=== PATIENT | female | born 1985 | race Caucasian/White ===

== ENCOUNTER 2018-10-02 14:53 | Inpatient (IN) | payer OTHER ==
[~2018-10-02] VITALS: Ht 162.6 cm; Wt 72.2 kg
[~2018-10-02 14:53] MED LIST: ALBU18HF ORAL; BACL10TA ORAL; DOCU-144 PO; HYDR-3601 ORAL; HYDR-4011 PO; LORA-441 PO; NITR0.4T32 ORAL; ONDA8TAB14 ORAL; PANT40TA3 PO
[2018-10-02] MEDS ORDERED: KETOROLAC 15 MG INJ IV STA (15:11)
[2018-10-02] MEDS ORDERED: morphine 4 MG/ML VIAL IV STA (15:11)
[2018-10-02] MEDS ORDERED: ONDANSETRON 4 MG INJ IV STA (15:11)
[2018-10-02] MEDS ORDERED: SOD CHLORIDE 0.9% 1,000 ML IV STA (15:11)
[2018-10-02] MEDS ORDERED: SOD CHLORIDE 0.9% 100 ML ONE (17:36)
[2018-10-02] MEDS ORDERED: IOHEXOL 300MG/ML 150 ML BTL ONE (17:36)
[2018-10-02] MEDS ORDERED: ACETAMINOPHEN 325 MG TAB PO PRN ×2 (20:30→21:00)
[2018-10-02] MEDS ORDERED: ONDANSETRON 4 MG INJ IV PRN (20:30)
[2018-10-02] MEDS ORDERED: HYDROCODONE/APAP (5/325) TAB PO PRN (21:00)
[2018-10-02] MEDS ORDERED: NACL 0.9% 3 ML SYG IV SCH (21:00)
[2018-10-02 22:43] VITALS: BP 123/82; PULSE 67; RESP 18
[2018-10-02 23:17] VITALS: Ht 162.6 cm; Wt 72.2 kg
[2018-10-02] MEDS: FAMOTIDINE 20 MG INJ IV SCH (23:54)
[2018-10-02] MEDS: ONDANSETRON 4 MG INJ IV PRN (23:58)
[2018-10-03] MEDS: HYDROCODONE/APAP (5/325) TAB PO PRN ×3 (03:39→13:10)
[2018-10-03] MEDS: ONDANSETRON 4 MG INJ IV PRN ×3 (06:18→20:04)
[2018-10-03 07:18] VITALS: BP 124/69; PULSE 66; RESP 18
[2018-10-03] MEDS: FAMOTIDINE 20 MG INJ IV SCH (09:06)
[2018-10-03 14:14] VITALS: BP 123/82; PULSE 71; RESP 18
[2018-10-03] MEDS ORDERED: METOCLOPRAMIDE 10 MG INJ IV PRN (15:30)
[2018-10-03] MEDS: morphine 2 MG INJ IV PRN ×2 (15:50→20:05)
[2018-10-03] MEDS: DOCUSATE SODIUM 250 MG CAP PO SCH (15:52)
[2018-10-03] MEDS: SUCRALFATE (100 MG/ML) 10ML CUP PO SCH ×2 (18:10→21:00)
[2018-10-03] MEDS: PANTOPRAZOLE 40 MG INJ IV SCH (18:10)
[2018-10-03 19:15] VITALS: BP 133/61; PULSE 71; RESP 18
[2018-10-03 20:14] VITALS: BP 120/70; PULSE 74; RESP 20
[2018-10-03] MEDS: METOCLOPRAMIDE 10 MG INJ IV SCH (21:15)
[2018-10-03] MEDS: HYDROmorphONE 1 MG/ML SYG IV PRN (21:30)
[2018-10-03] MEDS ORDERED: LORAZEPAM 2 MG INJ IV ONE (22:30)
[2018-10-03] MEDS ORDERED: ONDANSETRON 4 MG INJ IV ONE (23:43)
[2018-10-04 00:08] VITALS: BP 122/76; PULSE 82; RESP 18
[2018-10-04] MEDS: METOCLOPRAMIDE 10 MG INJ IV SCH ×5 (03:30→20:51)
[2018-10-04 04:30] VITALS: BP 106/56; PULSE 75; RESP 20
[2018-10-04] MEDS: HYDROmorphONE 1 MG/ML SYG IV PRN ×3 (04:55→13:28)
[2018-10-04] MEDS: DEXTROSE 5%-0.45% NACL 1,000 ML IV SCH ×3 (05:02→20:44)
[2018-10-04] MEDS: PANTOPRAZOLE 40 MG INJ IV SCH ×2 (05:05→18:08)
[2018-10-04] MEDS: ONDANSETRON 4 MG INJ IV PRN ×4 (06:17→21:51)
[2018-10-04 07:52] VITALS: BP 119/68; PULSE 77; RESP 18
[2018-10-04] MEDS: SUCRALFATE (100 MG/ML) 10ML CUP PO SCH ×4 (08:51→20:51)
[2018-10-04] MEDS: DOCUSATE SODIUM 250 MG CAP PO SCH ×2 (08:51→09:00)
[2018-10-04] MEDS ORDERED: ONDANSETRON 4 MG INJ ONE (10:44)
[2018-10-04] MEDS ORDERED: PROCHLORPERAZINE 5 MG TAB PO PRN (11:30)
[2018-10-04] MEDS: morphine 2 MG INJ IV PRN (14:17)
[2018-10-04] MEDS: KETOROLAC 15 MG INJ IV PRN ×2 (14:32→20:51)
[2018-10-04 14:53] VITALS: BP 118/61; PULSE 57
[2018-10-04] MEDS: LORAZEPAM 2 MG INJ IV PRN (16:34)
[2018-10-04 19:20] VITALS: BP 117/73; PULSE 97; RESP 20
[2018-10-04] MEDS ORDERED: LORAZEPAM 2 MG INJ IV ONE (21:30)
[2018-10-04 22:12] VITALS: BP 120/77; PULSE 77; RESP 18
[2018-10-05] VITALS (17 sets, daily range): BP systolic 107–135; BP diastolic 56–84; PULSE 70–92; RESP 17–20
[2018-10-05] MEDS: PANTOPRAZOLE 40 MG INJ IV SCH ×3 (05:17→20:53)
[2018-10-05] MEDS: METOCLOPRAMIDE 10 MG INJ IV SCH ×4 (05:18→20:53)
[2018-10-05] MEDS: KETOROLAC 15 MG INJ IV PRN ×3 (05:18→18:46)
[2018-10-05] MEDS: ONDANSETRON 4 MG INJ IV PRN ×3 (08:06→18:46)
[2018-10-05] MEDS: DOCUSATE SODIUM 250 MG CAP PO SCH (09:00)
[2018-10-05] MEDS: SUCRALFATE (100 MG/ML) 10ML CUP PO SCH ×4 (09:00→21:00)
[2018-10-05] MEDS: LORAZEPAM 2 MG INJ IV PRN ×2 (10:21→21:14)
[2018-10-05] MEDS: DEXTROSE 5%-0.45% NACL 1,000 ML IV SCH (14:05)
[2018-10-05] MEDS ORDERED: PROPOFOL 40 ML ONE (18:04)
[2018-10-06] MEDS ORDERED: ONDANSETRON INJ 8 MG in DEXTROSE 5% 50 ML IV PRN ×2
[2018-10-06] MEDS ORDERED: SCOPOLAMINE 1.5 MG PATCH TRANSDERM PRN (01:30)
[2018-10-06 02:18] VITALS: BP 111/65; PULSE 96; RESP 20
[2018-10-06] MEDS: METOCLOPRAMIDE 10 MG INJ IV SCH ×3 (03:39→15:59)
[2018-10-06] MEDS: KETOROLAC 15 MG INJ IV PRN ×2 (03:39→09:43)
[2018-10-06] MEDS: DEXTROSE 5%-0.45% NACL 1,000 ML IV SCH (03:55)
[2018-10-06] MEDS: LORAZEPAM 2 MG INJ IV PRN ×2 (05:13→12:16)
[2018-10-06] MEDS ORDERED: MAGNESIUM SULFATE 1 GM/D5W 100 ML IVPB ONE (06:30)
[2018-10-06 08:28] VITALS: BP 115/70; PULSE 86; RESP 18
[2018-10-06] MEDS: SUCRALFATE (100 MG/ML) 10ML CUP PO SCH ×2 (09:00→12:52)
[2018-10-06] MEDS ORDERED: POTASSIUM CHLORIDE (SR) 20 MEQ TAB PO SCH (09:00)
[2018-10-06] MEDS: DOCUSATE SODIUM 250 MG CAP PO SCH (09:00)
[2018-10-06 14:50] VITALS: BP 123/79; PULSE 81; RESP 15
== END 2018-10-06 16:45 | disposition home or self-care (01) | DRG 392 ==
LOC: E/R 14:53 → MS1 20:20 → CANRESERV 20:35 → OBSVTOIN 10-04 15:54
PROVIDERS: ADMIT Family Medicine; ATTEND Family Medicine
PROC: 0T9B70Z Drainage of Bladder with Drainage Device, Via Natural or Artificial Opening (ICD-10-PCS; 2018-10-04)
PROC: 0DB68ZX Excision of Stomach, Via Natural or Artificial Opening Endoscopic, Diagnostic (ICD-10-PCS; principal; 2018-10-05 16:00)
PROC: 0DJD8ZZ Inspection of Lower Intestinal Tract, Via Natural or Artificial Opening Endoscopic (ICD-10-PCS; 2018-10-05 16:00)
PROC: 0UPD7HZ Removal of Contraceptive Device from Uterus and Cervix, Via Natural or Artificial Opening (ICD-10-PCS; 2018-10-06)
DX: K29.70 Gastritis, unspecified, without bleeding (principal); R33.9 Retention of urine, unspecified; R11.2 Nausea with vomiting, unspecified; K21.9 Gastro-esophageal reflux disease without esophagitis; R15.9 Full incontinence of feces; K64.8 Other hemorrhoids; R31.9 Hematuria, unspecified; F12.90 Cannabis use, unspecified, uncomplicated; Z30.432 Encounter for removal of intrauterine contraceptive device
CPT/HCPCS: 36415; 72195; 74177; 74181; 76830; 76856; 80048; 80053; 80307; 81001; 81025; 82270; 83690; 83735; 84100; 85025; 85613; 85651; 86038; 86140; 86226; 87081; 87086; 88305; 88312; 96374; 96375; C9113; G0378; J1170; J1885; J2060; J2270; J2405; J2765; J3475; J7030; J7042; Q9967